=== PATIENT | female | born 1965 | race Caucasian/White ===

== ENCOUNTER 2025-07-09 09:56 | Emergency (ER) | payer OTHER ==
[~2025-07-09] VITALS: Ht 167.6 cm; Wt 56.7 kg
[~2025-07-09 09:56] MED LIST: FLEXERIL10 MG PO; MOTRIN,RUFEN800 MG PO
[2025-07-09] MEDS ORDERED: ALENDRONATE SOD70 M1 PO (10:09)
[2025-07-09] MEDS ORDERED: IBUPROFEN 800 MG TAB PO ONE (10:15)
[2025-07-09] MEDS ORDERED: MELOXICAM15 MG PO (10:52)
== END 2025-07-09 11:14 | disposition home or self-care (01) ==
LOC: ED 09:56
DX: S40.012A Contusion of left shoulder, initial encounter (principal); Z88.0 Allergy status to penicillin; Z91.040 Latex allergy status; Y04.2XXA Assault by strike against or bumped into by another person, initial encounter; Y93.89 Activity, other specified; Y92.89 Other specified places as the place of occurrence of the external cause; Y99.8 Other external cause status